=== PATIENT | female | born 1980 | race Caucasian/White ===

== ENCOUNTER 2023-04-21 13:04 | Emergency (ER) | payer BC, SELFPAY ==
[2023-04-21 13:06] VITALS: BP 175/130; PULSE 75; RESP 24; TEMP 36.8; O2SAT 97
--- NOTE | 2023-04-21 13:06 | W.ED.HA ---
HPI - Headache General: Chief Complaint: Headache Stated Complaint: HEADACHE Time Seen by Provider: 04/21/23 13:05 History of Present Illness: 42-year-old female comes in today with complaints of headache starting 3 days ago. Patient reports similar headaches in the past. Patient takes medications for anxiety. Patient reports chills. History includes panic attack, migraine headaches, and obesity. Associated symptoms: Reports nausea; Deny chest pain Review of Systems General: Reports: 10 or more systems reviewed and unremarkable except in HPI and below Const: Reports: chills Card: Denies: chest pain Resp: Denies: dyspnea GI: Reports: nausea : Denies: difficulty voiding Musc: Denies: neck pain or back pain Neuro: Reports: headache(s) [facility] PFSH: Medical History (Updated 04/21/23 @ 16:52 by GARETH Al) Panic attacks Obesity Migraine headache Ventral hernia Surgical History (Updated 07/27/22 @ 12:33 by Ana Acharya MD) History of hysterectomy with unilateral oophorectomy still has r ovary History of hand surgery right thumb Family History (Updated 07/27/22 @ 12:34 by Ana Acharya MD) Father Family history of premature coronary artery disease CAD (coronary artery disease) mi at 36 Diabetes Social History (Updated 07/27/22 @ 12:36 by Ana Acharya MD) Smoking and tobacco/nicotine status: never used tobacco/nicotine Alcohol intake: current Alcohol intake frequency: holidays/special occasions only Substance/Drug Use: never Household members: spouse Marital status: Number of children: 2 Current occupational status: employed 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 Physical Exam Const: COMMON NORMALS: alert HENMT: COMMON NORMALS: normocephalic HEAD & SCALP: normocephalic THROAT: posterior oropharynx normal Neck/C-Spine: COMMON NORMALS: full ROM Resp: COMMON NORMALS: normal respiratory effort and clear to auscultation bilaterally AUSCULTATION: clear to auscultation bilaterally Cardio: COMMON NORMALS: regular rate RATE: regular rate GI: COMMON NORMALS: Soft to palpation PALPATION: Yes Soft to palpation Extremity: COMMON NORMALS: normal to inspection Neuro: SENSORIUM/ORIENTATION: Yes alert Skin: COMMON NORMALS: turgor normal GENERAL SKIN EXAM: turgor normal Course ED course: 1420, pt is resting quiter, report some improvement in headache, would like something more for headache , will dose with 1mg of dihydroergotamine. 1536, patient reports minimal difference after dosing with the dihydroergotamine, she rates her pain as a 6 on a 10 scale. This is down from a 10. Will go ahead and dose with 30 of Toradol and 10 of Compazine to see if we can get further improvement of her headache. Vital Signs: Vital signs: Vital Signs Temperature 98.2 F 04/21/23 13:06 Pulse Rate 72 04/21/23 16:06 Respiratory Rate 24 H 04/21/23 13:24 Blood Pressure 135/103 04/21/23 16:06 Pulse Oximetry 95 04/21/23 16:06 Oxygen Delivery Me thod Room Air 04/21/23 13:06 MDM - Headache Medical Decision Making 42-year-old female comes in today with severe headache for the last 3 days. On exam patient has no focal neural deficits. Patient was all extremities well. Pupils are equal at 2 mm. No nystagmus is noted. Patient moves neck without difficulty. No rigidity is noted in the neck. Respirations are even lungs are clear to auscultation. Abdomen soft nontender. Differential diagnosis includes but not limited to intracranial bleeding, migraine headache, panic attack, viral syndrome, meningitis. CT of the head was unremarkable. CBC noted some mild elevation in leukocytes at 12,000. CMP was normal. Believe the patient has an exacerbation of her chronic migraines. Patient was medicated first with morphine, Reglan, and diphenhydramine with improvement of migraine from a 10 to 6. Then, dihydroergotamine 1 mg was given with no significant change. After 1 hour ketorolac and Compazine was then given. Patient was monitored for another 30 to 45 minutes and reported full relief of headache. Patient was discharged home with recommendations for follow-up. Lab Data 04/21/23 13:31 04/21/23 13:[address] 04/21/23 13:[address]: 1[address] evidence of acute intracranial pathology. 2. Additional findings, as above. Laboratory Results WBC 12.65 10^3/uL (3.29-11.43) H 04/21/23 13:31 RBC 5.42 10^6/uL (3.85-5.65) 04/21/23 13:31 Hgb 16.20 g/dL (11.27-16.99) 04/21/23 13:31 Hct 48.5 % (36-47) H 04/21/23 13:31 MCV 89.5 fl (85-98) 04/21/23 13:31 MCH 29.9 pg (27-33) 04/21/23 13:31 MCHC 33.4 g/dL (30-55) 04/21/23 13:31 RDW 13.2 % (12.1-15.1) 04/21/23 13:31 Plt Count 386 10^3/cmm (157-399) 04/21/23 13:31 MPV 9.7 fL (7.4-10.4) 04/21/23 13:31 Neut % (Auto) 56.8 % 04/21/23 13:31 Lymph % (Auto) 33.2 % 04/21/23 13:31 [place] % (Auto) 7.7 % 04/21/23 13:31 Eos % (Auto) 1.1 % 04/21/23 13:31 Baso % (Auto) 0.6 % 04/21/23 13:31 Neut # (Auto) 7.19 10^3/uL (1.8-7.7) 04/21/23 13:31 Lymph # (Auto) 4.2 10^3/uL (0.8-4.8) 04/21/23 13:31 [place] # (Auto) 1.0 10^3/uL (0.2-0.9) H 04/21/23 13:31 Eos # (Auto) 0.1 10^3/uL (0.0-0.8) 04/21/23 13:31 Baso # (Auto) 0.1 10^3/uL (0.0-0.1) 04/21/23 13:31 Nucleated RBC % (auto) 0 % 04/21/23 13:31 Nucleated RBCs # 0.0 /100WBC 04/21/23 13:31 ESR 57 mm/hr (0-15) H 04/21/23 13:31 Sodium 139 mmol/L (136-145) 04/21/23 13:31 Potassium 4.2 mmol/L (3.5-5.1) 04/21/23 13:31 Chloride 101 mmol/L (98-107) 04/21/23 13:31 Carbon Dioxide 22 mmol/L (22-29) 04/21/23 13:31 Anion Gap 20.2 (5-19) H 04/21/23 13:31 BUN 13 mg/dL (6-20) 04/21/23 13:31 Creatinine 0.7 mg/dL (0.5-0.9) 04/21/23 13:31 GFR Calculation 92.7 mL/min (90-130) 04/21/23 13:31 Glucose 92 mg/dL (65-115) 04/21/23 13:31 Calculated Osmolality 288 mOsm/kg (285-295) 04/21/23 13:31 Calcium 10.1 mg/dL (8.5-10.5) 04/21/23 13:31 Total Bilirubin 0.4 mg/dL (0.15-1.2) 04/21/23 13:31 AST 20 U/L (0-32) 04/21/23 13:31 ALT 19 U/L (0-33) 04/21/23 13:31 Alkaline Phosphatase 112 U/L (35-105) H 04/21/23 13:31 C-Reactive Protein 14.9 mg/L (0.0-4.9) H 04/21/23 13:31 Total Protein 8.6 g/dL (6.6-8.7) 04/21/23 13:31 Albumin 4.2 g/dL (3.5-5.2) 04/21/23 13:31 Globulin 4.4 g/dL (1.3-4.6) 04/21/23 13:31 HCG, Qual Negative (Negative) 04/21/23 13:31 All radiology interpretation(s) finalized by discharge Discharge Plan Discharge Patient Disposition: Home Clinical Impression: Migraine headache Qualifiers: Migraine type: periodic headache syndrome Intractability: intractable Qualified Code(s): G43.C1 - Periodic headache syndromes in child or adult, intractable Prescriptions: No Action alprazolam 0.5 mg tablet 0.5 mg PO DAILY PRN (Reason: anxiety) Qty: 60 0RF Wegovy 0.25 mg/0.5 mL pen injector 0.25 mg SUBCUT Q7D Qty: 2 2RF sertraline 100 mg tablet 100 mg PO DAILY Qty: 90 0RF naltrexone 50 mg tablet 50 mg PO DAILY Qty: 90 0RF bupropion HCl 300 mg tablet extended release 24 hr 300 mg PO QAM Discharge Orders: Discharge ED (Routine); Ordered 04/21/23 Ordered By: Zeke Michael Referrals: Ana Acharya MD [Primary Care Provider] - Rufus Terry MD [Physician] - Discharge Diet: Usual diet Discharge Activity: Increase activity as tolerated Patient Instructions: Migraine Headache (ED) Activity Restrictions/Additional Instructions: Home and rest. Drink plenty water and fluids. Follow-up with primary care or specialist for further recommendations of treatment. Coding Level of Care Code ED Sponge Clipper for Oracio Cai
--- NOTE | 2023-04-21 13:14 | CTR_ITS ---
PROCEDURE INFORMATION: Exam: CT Head Without Contrast Exam date and time: 04/21/2023 1:48 PM Age: 42 years old Clinical indication: Pain; Headache; Additional info: Severe headache TECHNIQUE: Imaging protocol: Computed tomography of the head without contrast. Axial, coronal and sagittal reformatted images were created and reviewed. Radiation optimization: All CT scans at this facility use at least one of these dose optimization techniques: automated exposure control; mA and/or kV adjustment per patient size (includes targeted exams where dose is matched to clinical indication); or iterative reconstruction. COMPARISON: No relevant prior studies available. RADIATION DOSE METRICS: Total DLP (mGy-cm): 987.08 FINDINGS: Brain: No CT evidence of acute intracranial hemorrhage or acute territorial infarction. No significant mass effect or midline shift. Basal cisterns patent. Cerebral ventricles: Normal in size and configuration. Paranasal sinuses: Mild ethmoid and right maxillary sinus mucosal thickening. No air-fluid levels. Mastoid air cells: Grossly unremarkable. Bones/joints: No acute osseous abnormality. Soft tissues: Grossly unremarkable. CT/CT head wo con* [id number] IMPRESSION: 1. No CT evidence of acute intracranial pathology. 2. Additional findings, as above.
--- NOTE | 2023-04-21 13:22 | PC.PHAR ---
medications entered are from what ext med history shows has been filled recently will try to verify with pt when pt isnt crying in pain
[2023-04-21 13:24] VITALS: RESP 24
[2023-04-21] MEDS: morphine 4 mg/mL SDV 1 mL IVP (13:24)
[2023-04-21] MEDS: metoclopramide 5 mg/mL SDV 2 mL 10 MG IVP (13:26)
[2023-04-21] MEDS: diphenhydrAMINE 50 mg/mL SDV 1mL IVP (13:27)
[2023-04-21 13:44] LABS: Basophils # 0.1 10^3/uL (0.0-0.1); Basophils % 0.6 %; Eosinophils # 0.1 10^3/uL (0.0-0.8); Eosinophils % 1.1 %; Hematocrit 48.5 % (36-47); Lymphocytes # 4.2 10^3/uL (0.8-4.8); Lymphocytes % 33.2 %; Mean Corpuscular HGB Conc 33.4 g/dL (30-55); Mean Corpuscular Hemoglobin 29.9 pg (27-33); Mean Corpuscular Volume 89.5 fl (85-98); Mean Platelet Volume 9.7 fL (7.4-10.4); Monocytes % 7.7 %; Neutrophils # 7.19 10^3/uL (1.8-7.7); Neutrophils % 56.8 %; Nucleated Red Blood Cells % 0 %; Platelet Count 386 10^3/cmm (157-399); Red Blood Count 5.42 10^6/uL (3.85-5.65); Red Cell Distribution Width 13.2 % (12.1-15.1); White Blood Count 12.65 10^3/uL (3.29-11.43)
[2023-04-21 13:52] LABS: Erythrocyte Sedimentation Rate 57 mm/hr (0-15)
[2023-04-21] MEDS: dexamethasone 10 mg/mL INJ IVP (13:56)
[2023-04-21 14:01] LABS: Alanine Aminotransferase 19 U/L (0-33); Albumin Level 4.2 g/dL (3.5-5.2); Alkaline Phosphatase 112 U/L (35-105); Anion Gap 20.2 (5-19); Aspartate Amino Transferase 20 U/L (0-32); Blood Urea Nitrogen 13 mg/dL (6-20); C Reactive Protein 14.9 mg/L (0.0-4.9); Calcium 10.1 mg/dL (8.5-10.5); Carbon Dioxide 22 mmol/L (22-29); Chloride 101 mmol/L (98-107); Globulin 4.4 g/dL (1.3-4.6); Glomerular Filtration Rate 92.7 mL/min (90-130); Glucose 92 mg/dL (65-115); Osmolality Calculated 288 mOsm/kg (285-295); Potassium 4.2 mmol/L (3.5-5.1); Sodium 139 mmol/L (136-145); Total Bilirubin 0.4 mg/dL (0.15-1.2); Total Protein 8.6 g/dL (6.6-8.7)
[2023-04-21 14:06] LABS: HCG, Serum Qual Negative (Negative)
[2023-04-21] MEDS: dihydroergotamine 1 mg/mL Inj IVP (14:57)
[2023-04-21 15:31] VITALS: BP 152/115
[2023-04-21 16:06] VITALS: BP 135/103; PULSE 72; O2SAT 95
[2023-04-21] MEDS: prochlorperazine 10 mg/2 mL Inj IVP (16:14)
[2023-04-21] MEDS: ketorolac 30 mg/mL INJ IVP (16:16)
[2023-04-21 17:14] VITALS: BP 138/101; PULSE 78; O2SAT 98
== END 2023-04-21 17:15 | disposition home or self-care (01) ==
PROVIDERS: Emergency Provider Nurse Practitioner Family; PCP Family Medicine
DX: G43.C1 Periodic headache syndromes in child or adult, intractable (principal)
CPT/HCPCS: 70450; 80053; 84703; 85025; 85651; 86140; 96374; 96375; 99285; J0780; J1100; J1110; J1200; J1885; J2270; J2765

== ENCOUNTER → 2023-06-04 09:12 | Outpatient (BNVA) | payer BC, SELFPAY | PROVIDERS: PCP Family Medicine; Visit Provider Nurse Practitioner Family | DX: R05.9 Cough, unspecified (principal) | CPT/HCPCS: 87400 ==

== ENCOUNTER → 2023-08-06 13:58 | Outpatient (BNVA) | payer BC, SELFPAY | PROVIDERS: PCP Family Medicine; Visit Provider Family Medicine | DX: I48.0 Paroxysmal atrial fibrillation (principal) | CPT/HCPCS: 80053; 83735; 84443; 85025 ==

== ENCOUNTER 2023-08-14 13:14 | Outpatient (CLI) | payer BC, SELFPAY ==
--- NOTE | 2023-08-14 13:30 | USCV_ITS ---
Nargis Carrillo Age: 42 Gender: F : 1980 Exam Date: 08/14/2023 13:20 Ordering Phys: Ana Acharya MD Technologist: CT Exam Location: [facility] [place] Indication: afib BP: / HR: Rhythm: Sinus Technical Quality: Adequate MEASUREMENTS (Male / Female) Normal Values FINDINGS Left Ventricle Normal left ventricular size and systolic function, EF 55% relative hypokinesia of the basal inferior wall. No regional wall motion abnormalities. Right Ventricle The right ventricle is normal in size and function. Right Atrium The right atrium is normal in size. Left Atrium The left atrium is normal in size. Mitral Valve No gross abnormalities noted Aortic Valve No gross abnormalities noted Tricuspid Valve No gross abnormalities noted Pulmonic Valve No gross abnormalities noted Pericardium Normal pericardium without effusion. Aorta Normal ascending aorta dimension. IVC The inferior vena cava appears normal. CONCLUSIONS Normal left ventricular size and systolic function, EF 55% relative hypokinesia of the basal inferior wall. No regional wall motion abnormalities. No gross valvular abnormalities noted. Normal cardiac chamber sizes There is no pericardial effusion. There are no intracardiac masses. Compared to the study from 06/12/2018, there may be a significant change Dr Elodia Richardson MD FACC (Electronically Signed) Final Date: 14 Aug 2023 22:22 S
== END 2023-08-14 13:15 | disposition home or self-care (01) ==
LOC: RAD 13:15
PROVIDERS: PCP Family Medicine; Visit Provider Family Medicine
DX: I48.0 Paroxysmal atrial fibrillation (principal)
CPT/HCPCS: 93306

== ENCOUNTER → 2023-10-14 17:01 | Outpatient (BNVA) | payer BC, SELFPAY | PROVIDERS: PCP Family Medicine; Referring Provider Family Medicine; Visit Provider Internal Medicine Cardiovascular Disease | DX: I10 Essential (primary) hypertension (principal); I48.0 Paroxysmal atrial fibrillation | CPT/HCPCS: 93005 ==

== ENCOUNTER 2023-10-31 12:42 | Outpatient (CLI) | payer BC, SELFPAY ==
--- NOTE | 2023-10-31 | ECG_ITS ---
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 Interpretive Statements NAME OF STUDY: TREADMILL STRESS TEST INDICATION: A FIB PROCEDURE: At the baseline, the patient's blood pressure was 124/79 with a heart rate of 81. The baseline electrocardiogram showed normal sinus rhythm with some nonspecific T wave changes. The patient exercised for 7 minutes and 27 seconds on a standard Jeronimo protocol. Patient attained a maximum heart rate of 170 beats per minute(94% of the maximum predicted heart rate) with a blood pressure at the peak exercise of 166/105 mm Hg. The EKG at the peak exercise revealed nonspecific T wave changes. Patient did not have any chest pain or any significant cardiac arrhythmias with the exercise During the recovery phase, there were no new changes. Blood pressure at the end of the recovery phase was 128/74 mm Hg with a heart rate of 105 per minute. CONCLUSION: 1. No significant EKG changes with the treadmill exercise 2. No exercise-induced chest pain or cardiac arrhythmia 3. Fair exercise tolerance, attained a maximum of 10.2 METs Electronically Signed On 10-31-2023 23:21:57 CDT by Elodia Richardson M.D. [email or web address]
[2023-10-31 12:57] VITALS: BMI 46.8
[2023-10-31 13:30] VITALS: BP 128/72; PULSE 99
== END 2023-10-31 12:43 | disposition home or self-care (01) ==
PROVIDERS: PCP Family Medicine; Visit Provider Internal Medicine Cardiovascular Disease
DX: I48.91 Unspecified atrial fibrillation (principal)
CPT/HCPCS: 93017

== ENCOUNTER 2024-09-08 12:44 | Outpatient (CLI) | payer BC, SELFPAY ==
--- NOTE | 2024-09-08 12:58 | XRR_ITS ---
PROCEDURE INFORMATION: Exam: XR Abdomen Exam date and time: 09/08/2024 1:03 PM Age: 44 years old Clinical indication: Constipation and nausea and vomiting; Prior surgery; Surgery date: 6+ months; Surgery type: Hysterectomy TECHNIQUE: Imaging protocol: Radiologic exam of the abdomen. Views: Three views of the abdomen. COMPARISON: No relevant prior studies available. FINDINGS: Gastrointestinal tract: Normal. No bowel dilation. Moderate fecal load in the right colon. Bones/joints: Unremarkable. XR/XR KUB [id number] IMPRESSION: 1. No evidence of intestinal obstruction or perforation radiographically. 2. Moderate fecal load in the right colon.
== END 2024-09-08 12:45 | disposition home or self-care (01) ==
PROVIDERS: PCP Family Medicine; Visit Provider Registered Nurse Neonatal Intensive Care
DX: K59.00 Constipation, unspecified (principal)
CPT/HCPCS: 74018

== ENCOUNTER → 2024-10-29 11:06 | Outpatient (BNVA) | payer BC, SELFPAY | PROVIDERS: PCP Family Medicine; Visit Provider Nurse Practitioner Family | DX: I48.0 Paroxysmal atrial fibrillation (principal) | CPT/HCPCS: 93005 ==

== ENCOUNTER → 2024-12-16 14:03 | Outpatient (BNVA) | payer BC, SELFPAY | PROVIDERS: PCP Family Medicine; Visit Provider Family Medicine | DX: I48.0 Paroxysmal atrial fibrillation (principal); E66.01 Morbid (severe) obesity due to excess calories; G43.C1 Periodic headache syndromes in child or adult, intractable; R53.83 Other fatigue | CPT/HCPCS: 80053; 80061; 82306; 83036; 84443; 85025 ==